=== PATIENT | female | born 1985 | race Caucasian/White ===

== ENCOUNTER 2017-03-22 16:12 | Emergency (ER) | payer MEDICARE, MEDICAID ==
[~2017-03-22] VITALS: Ht 152.4 cm; Wt 45.4 kg
--- NOTE | 2017-03-22 16:26 | NUR ---
CALLED PATIENT TO TRIAGE ROOM - NO RESPOND. UNABLE TO TRIAGE PATIENT AT THIS TIME. WILL TRY AGAIN LATER.
--- NOTE | 2017-03-22 16:52 | NUR ---
CALLED PATIENT TO TRIAGE ROOM SECOD TIME - NO RESPONSE. UNABLE TO TRIAGE PATIENT AT THIS TIME. WILL TRY AGAIN LATER.
[2017-03-22 17:16] VITALS: BP 134/77
[2017-03-22] MEDS ORDERED: SULFAMETH/TRIMETH 800/160 MG 1 UDTAB TABLET PO ONE ×2 (18:00→18:08)
[2017-03-22] MEDS ORDERED: ACETAMINOPHEN ES 500 MG TABLET ONE (18:11)
--- NOTE | 2017-03-22 18:12 | NUR ---
VERBAL ORDER FROM KIMBERLY LOPEZ TYLENOL 1000 MG PO X1
[2017-03-22] MEDS ORDERED: CEPHALEXIN MONOHYDRATE 500 MG CAPSULE PO ONE ×2 (18:27→18:30)
[2017-03-22] MEDS ORDERED: ACETAMINOPHEN 325 MG TABLET PO ONE (18:30)
== END 2017-03-22 18:39 | disposition home or self-care (01) ==
LOC: ER 16:15
DX: L03.213 Periorbital cellulitis (principal)
CPT/HCPCS: 99284; A4606; Z7610

== ENCOUNTER 2019-09-13 16:50 | Emergency (ER) | payer MEDICAID, MEDICARE, OTHER ==
[~2019-09-13] VITALS: Ht 149.9 cm; Wt 49.9 kg
[2019-09-13 17:07] VITALS: BP 127/88
[2019-09-13] MEDS ORDERED: BACI/NEOM/POLY B OINT PKT 1 UDPKT PACKET TP ONE (18:00)
[2019-09-13] MEDS ORDERED: TDAP [DIPH/PERTUSSIS/TET] 0.5 ML VIAL IM ONE ×2 (18:00→18:01)
--- NOTE | 2019-09-13 18:05 | NUR ---
Patient discharged to home in stable condition. Written and verbal after care instructions given. Patient verbalizes understanding of instruction. Pt ambulatory with a steady gait
== END 2019-09-13 18:06 | disposition home or self-care (01) ==
LOC: ER 16:54
DX: S81.802A Unspecified open wound, left lower leg, initial encounter (principal); L03.116 Cellulitis of left lower limb; Z88.8 Allergy status to other drugs, medicaments and biological substances; X58.XXXA Exposure to other specified factors, initial encounter; Y93.89 Activity, other specified; Y92.89 Other specified places as the place of occurrence of the external cause; Y99.8 Other external cause status
CPT/HCPCS: 90715

== ENCOUNTER 2020-02-23 16:22 | Emergency (ER) | payer OTHER ==
[~2020-02-23] VITALS: Ht 157.5 cm; Wt 59.0 kg
[2020-02-23 16:46] VITALS: BP 103/78
[2020-02-23] MEDS ORDERED: IBUPROFEN 400 MG TABLET ONE (17:00)
[2020-02-23] MEDS ORDERED: IBUPROFEN 400 MG TABLET PO ONE (17:00)
--- NOTE | 2020-02-23 17:08 | NUR ---
Patient given written and verbal discharge instructions. Patient verbalizes understanding of instructions. Patient is ambulatory with steady gait. Refuses offer of [facility] placement. Patient given list of available shelters in surrounding area.
== END 2020-02-23 19:18 | disposition home or self-care (01) ==
LOC: ER 19:12
DX: L03.115 Cellulitis of right lower limb (principal); Z88.8 Allergy status to other drugs, medicaments and biological substances; Z59.0 Homelessness